=== PATIENT | male | born 1960 | race Asian ===

== ENCOUNTER 2018-08-14 06:52 | Inpatient (IN) | payer OTHER ==
[~2018-08-14] VITALS: Ht 167.6 cm; Wt 69.5 kg
[2018-08-14] MEDS ORDERED: PANTOPRAZOLE 80 MG in SODIUM CHLORIDE 0.9% 50 ML IVPB ONE (07:21)
[2018-08-14] MEDS ORDERED: SODIUM CHLORIDE 0.9% 1,000ML IVBOLUS ONE ×2 (07:30→10:30)
[2018-08-14] MEDS ORDERED: SODIUM CHLORIDE FLUSH 10ML SYR IVF ONE (07:30)
[2018-08-14 07:47] LABS: BASOPHILS # (AUTO) 0.03 x10^3/uL (0-0.1); BASOPHILS % (AUTO) 0 % (0-1); EOSINOPHILS # (AUTO) 0.03 x10^3/uL (0-0.4); EOSINOPHILS % (AUTO) 0 % (1-7); LYMPHOCYTES # (AUTO) 1.91 x10^3/uL (1-3.4); LYMPHOCYTES % (AUTO) 16 % (22-44); MD NO; MEAN CORPUSCULAR HEMOGLOBIN 25.8 pg (27.5-34.5); MEAN CORPUSCULAR HGB CONC 32.1 g/dL (33.2-36.2); MEAN CORPUSCULAR VOLUME 80.4 fL (81-97); MEAN PLATELET VOLUME 9.4 fL (7.4-10.4); MONOCYTES # (AUTO) 0.67 x10^3/uL (0.2-0.8); MONOCYTES % (AUTO) 6 % (2-9); NEUTROPHILS # (AUTO) 9.69 x10^3/uL (1.8-6.8); NEUTROPHILS % (AUTO) 79 % (42-75); PLATELET COUNT 237 x10^3/uL (130-400); RED BLOOD COUNT 3.77 x10^6/uL (4.38-5.82); RED CELL DISTRIBUTION WIDTH 14.4 % (9.4-14.8)
[2018-08-14 07:53] LABS: ALANINE AMINOTRANSFERASE 23 U/L (12-78); ANION GAP 5 mmol/L (5-15); CALCIUM 7.8 mg/dL (8.5-10.1); CHLORIDE 107 mmol/L (98-107); CREATININE 1.02 mg/dL (0.7-1.3)
[2018-08-14 07:55] LABS: ALKALINE PHOSPHATASE 51 U/L (45-117); BILIRUBIN,TOTAL 0.2 mg/dL (0.2-1.0); TOTAL PROTEIN 6.2 g/dL (6.4-8.2)
[2018-08-14 07:56] LABS: INTERNATIONAL NORMALIZED RATIO 0.99 (0.93-1.1); PROTHROMBIN TIME 10.4 Seconds (9.6-11.5)
--- NOTE | 2018-08-14 07:58 | NUR ---
PT COMPLAINS OF N/V ON FRIDAY. PT STATES HE VOMITED ON FRIDAY AND IT WAS BLACK. PT STATES HE HAS NOT VOMITED SINCE THEN BUT HAS NOT EATEN MUCH. PT IS NOT SURE WHAT COLOR HIS STOOL HAS BEEN. PT DENIES ETOH USE, IBUPROFEN OR NSAID USE, PUD, OR ANY PRIOR HISTORY OF GI BLEEDING. PT STATES HE FEELS DIZZY AND HAS A HEADACHE. PT PLACED ON CONT SPO2 AND BP MONITOR. TWO LARGE BORE PIV STARTED.
--- NOTE | 2018-08-14 08:07 | NUR ---
MEDICATION STARTED PER EMAR
[2018-08-14] MEDS ORDERED: PANTOPRAZOLE 80 MG in SODIUM CHLORIDE 0.9% 100 ML IV SCH (08:10)
[2018-08-14 10:14] VITALS: BP 85/53
[2018-08-14] MEDS ORDERED: SODIUM CHLORIDE 0.9% 1,000 ML IV SCH ×2 (10:21→16:00)
[2018-08-14] MEDS ORDERED: ACETAMINOPHEN 325 MG TABLET PO PRN (10:30)
[2018-08-14] MEDS ORDERED: ONDANSETRON 2MG/ML, 2ML IV PRN ×2 (10:30→14:00)
[2018-08-14] MEDS: PANTOPRAZOLE 80 MG in SODIUM CHLORIDE 0.9% 100 ML IV SCH ×2 (10:56→21:03)
[2018-08-14 11:18] VITALS: BP 101/67
[2018-08-14 13:04] VITALS: BP 99/63
[2018-08-14] MEDS ORDERED: FENTANYL PF 100 MCG/2ML ONE (13:07)
[2018-08-14] MEDS ORDERED: MIDAZOLAM 1 MG/ML, 5ML ONE (13:07)
[2018-08-14] MEDS ORDERED: PROPOFOL 10 MG/ML, 50ML ONE (13:39)
[2018-08-14] MEDS ORDERED: LABETALOL 5 MG/ML SYRINGE IV PRN (14:00)
[2018-08-14] MEDS ORDERED: METOPROLOL 1 MG/ML, 5ML IV PRN (14:00)
[2018-08-14] MEDS ORDERED: hydrALAzine 20 MG/ML, 1ML IV PRN (14:00)
[2018-08-14] MEDS ORDERED: FENTANYL PF 100 MCG/2ML IV PRN (14:00)
[2018-08-14 15:34] VITALS: BP 88/46
[2018-08-14] MEDS ORDERED: SODIUM CHLORIDE 0.9% 1,000 ML IV ONE (16:30)
[2018-08-14] MEDS: SODIUM CHLORIDE 0.9% 1,000 ML IV SCH (17:06)
[2018-08-14 17:09] VITALS: BP 96/60
[2018-08-14 18:52] VITALS: BP 96/62
[2018-08-15 01:40] VITALS: BP 96/62
[2018-08-15] MEDS: SODIUM CHLORIDE 0.9% 1,000 ML IV SCH ×4 (02:06→23:06)
[2018-08-15 05:54] LABS: CHLORIDE 116 mmol/L (98-107)
[2018-08-15 06:01] LABS: MEAN CORPUSCULAR HEMOGLOBIN 26.9 pg (27.5-34.5); MEAN CORPUSCULAR HGB CONC 32.9 g/dL (33.2-36.2); MEAN CORPUSCULAR VOLUME 81.7 fL (81-97); MEAN PLATELET VOLUME 8.9 fL (7.4-10.4); PLATELET COUNT 179 x10^3/uL (130-400); RED BLOOD COUNT 2.68 x10^6/uL (4.38-5.82); RED CELL DISTRIBUTION WIDTH 14.6 % (9.4-14.8)
[2018-08-15 06:07] LABS: % IRON SATURATION 18 % (20-55); ALANINE AMINOTRANSFERASE 16 U/L (12-78); ALBUMIN 2.3 g/dL (3.4-5.0); ALKALINE PHOSPHATASE 34 U/L (45-117); ANION GAP 4 mmol/L (5-15); BILIRUBIN,TOTAL 0.3 mg/dL (0.2-1.0); CREATININE 0.72 mg/dL (0.7-1.3); IRON LEVEL 32 mcg/dL (65-175); TOTAL IRON BINDING CAPACITY 173 mcg/dL (250-450); TOTAL PROTEIN 4.7 g/dL (6.4-8.2); TRANSFERRIN 139 mg/dL (200-360)
[2018-08-15] MEDS: PANTOPRAZOLE 80 MG in SODIUM CHLORIDE 0.9% 100 ML IV SCH ×2 (06:36→17:02)
[2018-08-15 06:47] LABS: MD MORPH REVIEW ONLY
[2018-08-15 06:48] LABS: ANISOCYTOSIS 1+; BASOPHILS # (AUTO) 0.03 x10^3/uL (0-0.1); BASOPHILS % (AUTO) 0 % (0-1); EOSINOPHILS # (AUTO) 0.11 x10^3/uL (0-0.4); EOSINOPHILS % (AUTO) 1 % (1-7); HYPOCHROMIA 1+; LYMPHOCYTES # (AUTO) 3.59 x10^3/uL (1-3.4); LYMPHOCYTES % (AUTO) 32 % (22-44); MICROCYTOSIS 1+; MONOCYTES # (AUTO) 1.11 x10^3/uL (0.2-0.8); MONOCYTES % (AUTO) 10 % (2-9); NEUTROPHILS # (AUTO) 6.23 x10^3/uL (1.8-6.8); NEUTROPHILS % (AUTO) 56 % (42-75); POLYCHROMASIA 1+
[2018-08-15 06:49] LABS: <PLATELET ESTIMATE> ADEQUATE; LARGE PLATELETS 1+
[2018-08-15 07:18] VITALS: BP 101/67
[2018-08-15 13:34] VITALS: BP 102/66
[2018-08-15 20:01] VITALS: BP 111/70
[2018-08-16 02:00] VITALS: BP 110/70
[2018-08-16] MEDS: PANTOPRAZOLE 80 MG in SODIUM CHLORIDE 0.9% 100 ML IV SCH ×2 (03:13→12:30)
[2018-08-16 05:32] LABS: BASOPHILS # (AUTO) 0.04 x10^3/uL (0-0.1); BASOPHILS % (AUTO) 0 % (0-1); EOSINOPHILS # (AUTO) 0.33 x10^3/uL (0-0.4); EOSINOPHILS % (AUTO) 3 % (1-7); LYMPHOCYTES # (AUTO) 2.87 x10^3/uL (1-3.4); LYMPHOCYTES % (AUTO) 29 % (22-44); MD NO; MEAN CORPUSCULAR HEMOGLOBIN 26.8 pg (27.5-34.5); MEAN CORPUSCULAR HGB CONC 32.3 g/dL (33.2-36.2); MEAN CORPUSCULAR VOLUME 82.8 fL (81-97); MEAN PLATELET VOLUME 8.9 fL (7.4-10.4); MONOCYTES # (AUTO) 0.97 x10^3/uL (0.2-0.8); MONOCYTES % (AUTO) 10 % (2-9); NEUTROPHILS # (AUTO) 5.81 x10^3/uL (1.8-6.8); NEUTROPHILS % (AUTO) 58 % (42-75); PLATELET COUNT 219 x10^3/uL (130-400); RED BLOOD COUNT 2.97 x10^6/uL (4.38-5.82); RED CELL DISTRIBUTION WIDTH 14.3 % (9.4-14.8)
[2018-08-16 07:11] VITALS: BP 112/70
[2018-08-16] MEDS: SODIUM CHLORIDE 0.9% 1,000 ML IV SCH (09:14)
[2018-08-16] MEDS ORDERED: OMEP-110 PO (10:10)
[2018-08-16 12:01] VITALS: BP 107/70
== END 2018-08-16 13:00 | disposition home or self-care (01) | DRG 378 ==
LOC: ED 07:35 → EDIP 08:10 → 4WST 08:45
PROVIDERS: ADMIT Internal Medicine; ATTEND Internal Medicine
PROC: 0DB68ZX Excision of Stomach, Via Natural or Artificial Opening Endoscopic, Diagnostic (ICD-10-PCS; principal; 2018-08-14 13:30)
DX: K25.4 Chronic or unspecified gastric ulcer with hemorrhage (principal); E44.1 Mild protein-calorie malnutrition; D62 Acute posthemorrhagic anemia; K29.81 Duodenitis with bleeding; I95.9 Hypotension, unspecified; R00.0 Tachycardia, unspecified; D50.9 Iron deficiency anemia, unspecified; R73.9 Hyperglycemia, unspecified; Z68.24 Body mass index [BMI] 24.0-24.9, adult; R55 Syncope and collapse; E86.0 Dehydration; D72.829 Elevated white blood cell count, unspecified; Z66 Do not resuscitate; Z87.11 Personal history of peptic ulcer disease; Z23 Encounter for immunization
CPT/HCPCS: 36415; 80053; 82728; 83540; 83550; 84466; 85014; 85018; 85025; 85610; 86850; 86900; 88305; 88342; 90656; 93005; 99285; G0378; J2250; J2704; J3010; C9113; J7030